=== PATIENT | male | born 1950 | race Caucasian/White ===

== ENCOUNTER → 2017-04-22 | Outpatient (CLI) | payer MEDICARE, OTHER ==
--- NOTE | ~2017-04-22 | BD1 ---
[facility] A Service of [facility] RADIOLOGY TEXT RESULTS PATIENT: MAGO MARRERO LOCATION: [facility] : 50 UNIT #: [id number] AGE: [address]: Raheem Jolly MD SEX: M ORDER DR: [id number] [facility] [address] [place], [place] [address] [id number] O MR#: [id number] Acc #: [id number] NAME: MAGO MARRERO : 1950 SEX: M STUDY DATE/TIME: 04/22/2017 11:45 UNIT: [facility] ROOM: STUDY DESCRIPTION: BD Dexa Bone Dens 1+ Site Attending Physician: Raheem Jolly M.D. Referring Physician: Raheem Jolly M.D. Ordering Physician: Raheem Jolly M.D. Primary Care Physician: Generic Doctor Not In System MEDICAL IMAGING REPORT This report is preliminary unless electronic signature is present EXAM DEXA scan 04/22/2017 HISTORY Osteoporosis. Prostate carcinoma. Benign essential hypertension and blood pressure medication. Smoking history. FINDINGS Bone mineral density in the lumbar spine from L1 through 1.144 g/cm2 which is 0.5 standard deviations above the mean when compared to the young adult reference population which is within the range of normal. This is 1.3 standard deviations above the mean when compared to the age-matched population. Bone mineral density in the left hip was 0.765 g/cm2 which is 1.8 standard deviations below the mean when compared to the young adult reference population which is characteristic of osteopenia. This is 1.2 standard deviations below the mean when compared to the age-matched population. IMPRESSION Bone mineral density in the lumbar spine within the range of normal and within the left hip characteristic of osteopenia. Dictated by... Dylon Thomas M.D. THIS IS AN ELECTRONICALLY VERIFIED REPORT Dylon Thomas M.D. at 04/23/2017 7:27 AM KRT/to TD: 04/22/2017 16:26 JOB #: [id number] MEDICAL IMAGING REPORT [facility]. [facility] A Service of [facility] RADIOLOGY TEXT RESULTS PATIENT: MAGO MARRERO LOCATION: [facility] #: [id number] : 50 UNIT #: [id number] AGE: [address]: Raheem Jolly MD SEX: M ORDER DR: Page 1 of 1 COPY
== END | disposition home or self-care (01) ==
LOC: CWCC 04-15 11:00
DX: M81.0 Age-related osteoporosis without current pathological fracture (principal); C61 Malignant neoplasm of prostate; M85.88 Other specified disorders of bone density and structure, other site
CPT/HCPCS: 77080